=== PATIENT | female | born 1970 | race African-American/Black ===

== ENCOUNTER 2017-02-28 10:25 | Emergency (ER) | payer SELFPAY ==
[~2017-02-28] VITALS: Ht 165.1 cm; Wt 95.0 kg
[2017-02-28 12:33] VITALS: BP 157/77
== END 2017-02-28 12:33 | disposition left against medical advice (07) ==
LOC: ED 10:25
DX: N93.8 Other specified abnormal uterine and vaginal bleeding (principal); I10 Essential (primary) hypertension; D25.9 Leiomyoma of uterus, unspecified; Z90.49 Acquired absence of other specified parts of digestive tract; Z98.890 Other specified postprocedural states
CPT/HCPCS: 83880

== ENCOUNTER 2017-03-17 11:28 | Emergency (ER) | payer MEDICAID ==
[2017-03-17 12:35] VITALS: BP 164/92
== END 2017-03-17 12:35 | disposition home or self-care (01) ==
LOC: ED 11:28
DX: M54.32 Sciatica, left side (principal); M54.31 Sciatica, right side; D25.9 Leiomyoma of uterus, unspecified; I10 Essential (primary) hypertension
CPT/HCPCS: J1885